=== PATIENT | female | born 1960 | race Caucasian/White ===

== ENCOUNTER 2019-10-31 17:49 | Emergency (ER) | payer SELFPAY ==
[2019-10-31] MEDS ORDERED: cefTRIAXone 1 GM Vial IM ONE (20:21)
--- NOTE | 2019-10-31 20:28 | EDM.PDOC ---
ED HPI GENERAL MEDICAL PROBLEM - General Chief Complaint: Bite:Animal, Insect Stated Complaint: BEE STING Time Seen by Provider: 10/31/19 20:25 Source of Information: Reports: Patient History Limitations: Reports: No Limitations - History of Present Illness INITIAL COMMENTS - FREE TEXT/NARRATIVE: 59-year-old female presents to the emergency department with redness of the left buttocks and groin. She thought she was stung by a bee 2 weeks ago on the left buttocks but had no redness or swelling until 3 days later. Since then she is noted a larger area of redness and now extension of the redness to the left groin. She denies any systemic symptoms. She denies itching or pain. She feels well otherwise. 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: - Past Surgical History Female Surgical History: Reports: Section Social & Family History - Tobacco Use Smoking Status *Q: Current Every Day Smoker Years of Tobacco use: 20 Packs/Tins Daily: 0.5 ED ROS GENERAL - Review of Systems Review Of Systems: See Below Constitutional: Reports: No Symptoms Skin: Reports: Other (Swelling and redness left buttocks and groin) ED EXAM, ANIMAL BITE - Physical Exam Exam: See Below Exam Limited By: No Limitations General Appearance: Alert, WD/WN, No Apparent Distress Skin Exam: Other (She has a large erythematous patch with well-defined borders on the left buttocks. She has lymphangitis extending into the left groin. She has swollen lymph nodes in the left groin. No abscesses noted associated with a cellulitis.) Course - Vital Signs Text/Narrative:: This patient has a cellulitis of the left buttocks as well as lymphangitis in the left groin. She was treated with Rocephin 1 g IM and will take Keflex 500 mg 4 times daily for 7 days. She will follow-up with primary care if she is not improving after 3 or 4 days. She return here if she notes any worsening. Last Recorded V/S: Last Vital Signs Temp 35.3 C L 10/31/19 19:38 Pulse 82 10/31/19 19:38 Resp 16 10/31/19 19:38 BP 148/84 H 10/31/19 19:38 Pulse Ox 96 10/31/19 19:38 - Orders/Labs/Meds Meds: Medications Discontinued Medications Generic Name Dose Route Start Last Admin Trade Name Vivien PRN Reason Stop Dose Admin Ceftriaxone Sodium 1 gm 10/31/19 20:21 Rocephin IM 10/31/19 20:22 ONETIME ONE Departure - Departure Time of Disposition: 20:24 Disposition: Home, Self-Care 01 Condition: Good Clinical Impression: Cellulitis - Discharge Information *PRESCRIPTION DRUG MONITORING PROGRAM REVIEWED*: No *COPY OF PRESCRIPTION DRUG MONITORING REPORT IN PATIENT VICTORIA: No Referrals: PCP,None [Primary Care Provider] - Additional Instructions: Take the antibiotic as prescribed. See your doctor if not improved after 3 or 4 days. Return to the emergency department as needed for problems or concerns. Sepsis Event Note (ED) - Evaluation Sepsis Screening Result: No Definite Risk - Focused Exam Vital Signs: Vital Signs Temp Pulse Resp BP Pulse Ox 10/31/19 19:38 35.3 C L 82 16 148/84 H 96 10/31/19 19:21 35.3 C L 82 16 148/84 H 96
[2019-10-31] MEDS ORDERED: cefTRIAXone 1 GM, Lidocaine 1% 2.1 ML IM ONE ×2 (20:33)
== END 2019-10-31 20:56 | disposition home or self-care (01) ==
LOC: JP.ED 17:49
DX: L03.317 Cellulitis of buttock (principal); F17.210 Nicotine dependence, cigarettes, uncomplicated
CPT/HCPCS: 96372; 99282; J0696; J2001